=== PATIENT | female | born 1975 | race Caucasian/White ===

== ENCOUNTER 2020-06-21 16:48 | Outpatient (CLI) | payer OTHER | END 2020-06-21 16:49 | disposition home or self-care (01) | LOC: COV 16:48 | PROVIDERS: ATTEND Family Medicine | DX: M79.10 Myalgia, unspecified site (principal); Z20.828 Contact with and (suspected) exposure to other viral communicable diseases; R53.83 Other fatigue; R09.81 Nasal congestion; R68.83 Chills (without fever) ==

== ENCOUNTER 2023-04-17 09:34 | Day surgery (SDC) | payer OTHER ==
[~2023-04-17 09:34] MED LIST: PROPOFOL 500 MG/50 ML 500 MG/50 ML VIAL ONE
[2023-04-17] MEDS ORDERED: LACTATED RINGERS 1,000 ML IV ONE ×2 (09:43→11:16)
--- NOTE | 2023-04-17 10:26 | ANESTHESIA ---
Pre-Anesthesia VS, & Labs - Diagnosis screening - Procedure colonoscopy Vital Signs: Temp Pulse Resp BP Pulse Ox O2 Flow Rate 36. C L 81 16 125/74 98 04/17/23 09:48 04/17/23 09:48 04/17/23 09:48 04/17/23 09:48 04/17/23 09:48 Height: 5 ft 6 in Weight (kg): 66 kg Body Mass Index: 23.5 BMI Classification: Normal - NPO Other - Is Patient ?: Not Applicable - Lab Results Current Lab Results: Laboratory Tests 04/17/23 10:02: POC Whole Bld Glucose 107 H Home Medications and Allergies Home Medications: Ambulatory Orders No Known Home Medications 04/16/23 No Known Home Medications 04/16/23 Allergies/Adverse Reactions: Allergies Allergy/AdvReac Type Severity Reaction Status Date / Time morphine Allergy Nausea Verified 06/10/17 11:48 Anes History & Medical History - Anesthetic History Anesthesia Complications: reports: No previous complications Family history of Anesthesia Complications: Denies Family history of Malignant Hyperthermia: Denies - Medical History Cardiovascular: reports: None Pulmonary: reports: None Gastrointestinal: reports: None Urinary: reports: None Neuro: reports: Migraines Musculoskeletal: reports: None Endocrine/Autoimmune: reports: None Skin: reports: None Smoking Status: Never smoker Psychosocial: reports: Alcohol, Cannabis History of Cancer?: No - Surgical History General: reports: Colonoscopy Gynecologic: reports: Hysterectomy Exam General: Alert, Oriented x3, Cooperative Dental: WNL Mouth Openin Fingerbreadth Neck Mobility: Normal Mallampati classification: II Thyromental Distance: 4-6 cm Respiratory: Lungs clear Cardiovascular: Regular rate Plan Anesthesia Type: General, Total IV Consent for Procedure(s) Verified and Reviewed: Yes Code Status: Attempt Resuscitation ASA classification: 2-Mild systemic disease Is this case an emergency?: No
[2023-04-17] MEDS ORDERED: GLYCOPYRROLATE 1 MG/5 ML VIAL ONE (11:03)
[2023-04-17 11:41] VITALS: O2SAT 98
[2023-04-17 12:01] VITALS: BP 113/68
--- NOTE | 2023-04-17 14:00 | ANESTHESIA POST OP EVALUATION ---
Anesthesia Post Eval - Post Anesthesia Eval Vitals: Last Vital Signs Temp 36 C L 04/17/23 11:55 Pulse 60 04/17/23 11:55 Resp 16 04/17/23 11:55 BP 113/68 04/17/23 11:55 Pulse Ox 98 04/17/23 11:55 O2 Flow Rate CV Function Including HR & BP: Stable Pain Control: Satisfactory Nausea & Vomiting: Negative Mental Status: Baseline Respiratory Status: Airway Patent Hydration Status: Satisfactory Anesthesia Complications: None
== END 2023-04-17 09:35 | disposition home or self-care (01) ==
LOC: SDS 09:34
PROVIDERS: ATTEND Surgery
PROC: 0DBN8ZX Excision of Sigmoid Colon, Via Natural or Artificial Opening Endoscopic, Diagnostic (ICD-10-PCS; 2023-04-17)
PROC: 0DBK8ZX Excision of Ascending Colon, Via Natural or Artificial Opening Endoscopic, Diagnostic (ICD-10-PCS; principal; 2023-04-17 11:00)
DX: Z12.11 Encounter for screening for malignant neoplasm of colon (principal); D12.2 Benign neoplasm of ascending colon; K63.5 Polyp of colon; K64.9 Unspecified hemorrhoids
CPT/HCPCS: 45380; J7120